=== PATIENT | female | born 1980 | race Caucasian/White ===

== ENCOUNTER 2018-02-10 10:55 | Emergency (ER) | payer OTHER ==
[~2018-02-10] VITALS: Ht 160 cm; Wt 49.9 kg
[~2018-02-10 10:55] MED LIST: MOTRIN800 MG PO; PRENATAL1 TAB
== END 2018-02-10 15:54 | disposition home or self-care (01) ==
LOC: ER 10:55
DX: K52.89 Other specified noninfective gastroenteritis and colitis (principal)

== ENCOUNTER 2022-03-14 09:18 | Emergency (ER) | payer OTHER ==
[~2022-03-14] VITALS: Ht 157.5 cm; Wt 56.7 kg
== END 2022-03-14 12:52 | disposition home or self-care (01) ==
LOC: ER 09:18
DX: G51.0 Bell's palsy (principal)